=== PATIENT | female | born 1970 | race Caucasian/White ===

== ENCOUNTER 2025-07-22 14:10 | Emergency (ER) | payer OTHER, SELFPAY ==
[2025-07-22 14:16] VITALS: BP 129/94
--- NOTE | 2025-07-22 14:30 | ED.GENMED ---
Addendum entered and electronically signed by Min Wisdom DO 07/22/25 17:27:
Update patient seen by psychiatry cleared for discharge
Original Note:
History of Present Illness
General
Chief Complaint: Overdose Intentional
Source: patient
Exam Limitations: none
Time Seen by Provider: 07/22/25 14:15
Nursing documentation reviewed up to this point in time: agreed with
History of Present Illness
History of Present Illness:
55-year-old female via EMS friend called 9:30 AM patient took 5 Ativan 1 OxyContin and a few of her antidepressants is a suicide attempt, had a suicide attempt years ago, was hospitalized at [facility] denies any alcohol or drugs, she is cooperative.
States she did fall asleep was awoken by her son has been a little bit sleepy since this episode
Past History
Past History
ED Past Medical History: Psychiatric
Social History
Tobacco: Non-smoker
Alcohol: None
Drug: None
Personal:
Living: with family
Employment: Employed
Phy Exam
Physical Exam
Physical Exam:
Physical Exam
General: no apparent distress, not acutely ill
Neck: No jaundice pupils round reactive 4 mm OU
Heart: s1/s2 regular rate and rhythm, no murmur. equal radial pulses.
Lungs: no acute respiratory distress. clear bilaterally
Abdomen: Not tender
Neuro: alert and oriented. no focal neurological deficits
Skin: no rash
Psychiatric: Cooperative admits to depression not hallucinating
Extremities: no edema.
Course
Orders/Labs/Results
Orders:
Orders
07/22/25 14:25
1:1 Observation - Suicide/ Violent Behavior As Directed
Electrocardiogram (*1) Stat
Reason for Study: Other
Other Reason for Exam: overdose
EKG- Treatment ONCE
IV Insert/Care/Rem.- Treatment PRN
07/22/25 14:26
Crisis Consult Routine
Reason for Consult: OD
07/22/25 14:30
Acetaminophen Urgent
Alcohol Urgent
Complete Blood Count/With Diff Urgent
Comprehensive Metabolic Panel Urgent
Fentanyl, Urine Urgent
Salicylate Urgent
Urine Drug Abuse Screen Urgent
Date Specimen was Collected: 07/22/25
Time Specimen was Collected: 14:29
Abnormal Lab Results
07/22/25
14:30
WBC 11.5 H 10^3/uL
(4.8-10.8)
Abs Immat Gran (auto) 0.1 H 10^3/uL
(0-0.05)
Absolute Lymphs (auto) 4.0 H 10^3/uL
(1.2-3.4)
Sodium 134 L mmol/L
(135-145)
Salicylates < 1.0 L mg/dl
(2.0-20.0)
Ur Oxycodone Screen Positive H
(Negative)
Acetaminophen < 10 L ug/ml
(10-30)
U Benzodiazepines Scrn Positive H
(Negative)
U Marijuana (THC) Screen Positive H
(Negative)
07/22/25 14:30
07/22/25 14:30
Vital Signs
Initial and Last Documented VS:
Initial Vital Signs
Temp Pulse Resp BP Pulse Ox
98.3 F 80 16 129/94 95
07/22/25 14:16 07/22/25 14:16 07/22/25 14:16 07/22/25 14:16 07/22/25 14:16
Last Documented Vital Signs
Temp Pulse Resp BP Pulse Ox
98.3 F 83 21 109/78 98
07/22/25 14:16 07/22/25 15:15 07/22/25 15:15 07/22/25 15:00 07/22/25 15:00
MDM/Problems Addressed
Differential Diagnosis Includes:
Overdose sedative-hypnotic narcotic will check anion gap and acetaminophen
MDM/Problems Addressed:
Overdose
Chronic conditions affecting care: Psychiatric illness
Acute Exacerbation and/or Progression of Chronic Illness: Psychiatric illness
*Pulse Oximetry
SaO2: 99
Oxygen Mode of Delivery: Room air
Patient hypoxic: no
*EKG
Interpreted by ED Provider?: Yes
Interpretation: normal
Comparison EKG: no comparison EKG present
Heart Rate: 78
Rate: normal
Rhythm: sinus
Ischemia: no ischemia
*Orthodontist Small Business [employer] Interpretation
Rate: normal
Interpretation: normal
Heart Rate: 78
Rhythm: sinus
*Critical Care Note
Total Time (30-74mins, 75-104mins- exclusive of procedures): Not Applicable
Update Note
Update Note:
Update patient over 4 hours from an overdose of some Ativan narcotic SSRI, EKG noted patient maintaining her airway no acute distress, will check screening blood work including acetaminophen and salicylate anion gap, monitor for any sleepiness,
crisis has been notified
3:30 PM update now about 6 hours from her ingestion, she is in no acute distress cooperative, voluntary to psychiatric facility
ED Attending Note
-
Portions of this chart may have been created with voice recognition software.� Occasional wrong word or��sound alike� substitutions may have occurred due to the inherent limitations of voice recognition software.
Discharge Plan
Departure
Patient Disposition: Psych Facility
Date of Disposition: 07/22/25
Time of Disposition: 15:29
Patient Status:: 201
Patient with high blood pressure during this ER visit?: No
Condition: Good
Discharge Problem:
Overdose
Instructions: Suicide Prevention, Depression, Adult (DC)
Prescriptions:
No Action
Align
1 tab PO DAILY
metoprolol succinate [Toprol XL] 50 MG tablet extended release 24 hr
50 mg PO QPM
citalopram 20 MG tablet
20 mg PO DAILY
pantoprazole 40 MG tablet,delayed release (DR/EC)
40 mg PO BID
cyclobenzaprine 5 MG tablet
5 mg PO HS
Vitamin B Complex
1 tab PO DAILY
Vitamin D3
1 cap PO DAILY
Fish Oil
2 cap PO DAILY
polyethylene glycol 3350 17 GRAMS powder in packet
17 grams PO DAILYPRN PRN (Reason: constipation) Qty: 1 0RF
acetaminophen [Tylenol Extra Strength] 500 MG tablet
1,000 mg PO Q6HPRN PRN (Reason: mild pain) Qty: 1 0RF
ibuprofen 200 MG tablet
400 - 600 mg PO Q6HPRN PRN (Reason: moderate pain) Qty: 1 0RF
oxycodone 5 MG tablet
5 mg PO Q4HPRN PRN (Reason: breakthrough/severe pain) Qty: 14 0RF
Referrals:
UNKNOWN - PT NOT,INTERVIEWE [Family Provider]
Interventions
Interventions:
*Risk Screen - Suicide Last Done: 07/22/25 14:16
*General Assessment Last Done: 07/22/25 14:26
*Neglect/Abuse Screening Last Done: 07/22/25 14:16
*ED- Fall Risk Assessment Last Done: 07/22/25 14:26
*ED COVID-19 Vaccine History Last Done: 07/22/25 14:26
*ED Influenza Vaccine History Last Done: 07/22/25 14:26
ED- Cardiac Assessment Last Done: 07/22/25 14:26
ED- Neurological Assessment Last Done: 07/22/25 14:26
ED- Pulmonary Assessment Last Done: 07/22/25 14:26
Discharge Date and Time
Print Language: ESTONIAN
[2025-07-22 14:42] LABS: Hematocrit 43.0 % (37.0-47.0); Hemoglobin 15.0 g/dL (12.0-16.0); Mean Corp Hgb Conc. 34.9 g/dL (33.0-37.0); Mean Corpuscular Volume 84.0 fL (81.0-99.0); Nucleated Red Blood Cells % 0 %; Platelet Count 394 10^3/uL (130-400); Red Cell Dist. Width 12.8 % (11.5-14.5)
[2025-07-22 14:57] LABS: ALT (SGPT) 14 U/L (0-35); AST (SGOT) 18 U/L (14-36); Acetaminophen < 10 ug/ml (10-30); Albumin 4.7 g/dl (3.5-5.0); Alkaline Phosphatase 66 U/L (38-126); Blood Urea Nitrogen 12 mg/dl (7-17); Calcium 9.7 mg/dl (8.4-10.2); Carbon Dioxide 29 mmol/L (22-30); Chloride 100 mmol/L (98-107); Glucose 82 mg/dl (70-99); Potassium 3.7 mmol/L (3.5-5.1); Salicylate < 1.0 mg/dl (2.0-20.0); Sodium 134 mmol/L (135-145); Total Protein 8.2 g/dl (6.3-8.2); eGFR > 60.00
[2025-07-22 15:00] VITALS: BP 109/78
--- NOTE | 2025-07-22 16:56 | CS.PSYCHR ---
Consult Summary - Psychiatry
-
pt seen by me in consultation for assessment for higher level of care. had agreed to 201 now wants to leave, police had filed 'backup 302' due to overdose
55 yo woman brought to ED by EMS due to overdose. Pt reports she had not really wanted to , just wanted to sleep, but had taken too many and was distraught about loss of relationship. Pt has online partners via [employer], was involved with man
from [place] who now does not want to have anything to do with her.
Upset about this and other things. 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 Finanes are getting tight, despite and son both working.
Past psychiatric history of involuntary treatment at [facility] 15 years ago 'a horrible experience' followed by IOP at [place], then out patient in [facility]. Psychiatrist retired, med[facility] currently [facility]
Pt states marriage has issues, is 13 years older, more like pt's father (who is 80) whereas she is more like her mother was ( of lung Ca at 52, begins crying when talking about her; pt was 27, mother never met pt's son.)
No significant medical problems. Lives with . son has had his own mental health struggles but doing better now.
We spoke with by speaker, he is fine with her coming home 'if she's gonna be ok.' Pt promised him and me that she would be fine, just wants to go to sleep.
On exam pt initially upset, insulting staff saying 'all you people treat mentally ill patients like dogs, no wonder no one gets better' stating she wants to leave. Agreed to meet with me to discuss, and for me to be sure that outpatient care will be
adequate to maintain her safety. Pt downplayed seriousness of OD, says 'if I had wanted to I would have taken 90 citalopram'. Denies any interest in dying, wants to live for her family, regrets putting them through this. No signs of cognitve
impairment, no signs of psychosis. No psychomotor retardation, affect reactive through full range. Fair insight and judgment
Impression: Adjustment disorder with mixed features
Rec: Pt safe to discharge to [facility] level of care, agrees to return if condition worsens. Aware she needs to avoid any more citalopram today and tomorrow.
--- NOTE | 2025-07-22 17:24 | ED.GENMED ---
History of Present Illness
General
Chief Complaint: Overdose Intentional
Time Seen by Provider: 07/22/25 14:15
Past History
Past History
ED Past Medical History: Psychiatric
Social History
Tobacco: Non-smoker
Alcohol: None
Drug: None
Personal:
Living: with family
Employment: Employed
Course
Orders/Labs/Results
Orders:
Orders
07/22/25 14:25
1:1 Observation - Suicide/ Violent Behavior As Directed
Electrocardiogram (*1) Stat
Reason for Study: Other
Other Reason for Exam: overdose
EKG- Treatment ONCE
IV Insert/Care/Rem.- Treatment PRN
07/22/25 14:26
Crisis Consult Routine
Reason for Consult: OD
07/22/25 14:30
Acetaminophen Urgent
Alcohol Urgent
Complete Blood Count/With Diff Urgent
Comprehensive Metabolic Panel Urgent
Fentanyl, Urine Urgent
Salicylate Urgent
Urine Drug Abuse Screen Urgent
Date Specimen was Collected: 07/22/25
Time Specimen was Collected: 14:29
07/22/25 16:49
PSYCHIATRY CONSULT Urgent
Consulting Provider: John Patton
Was physician already notified: Yes
Abnormal Lab Results
07/22/25
14:30
WBC 11.5 H 10^3/uL
(4.8-10.8)
Abs Immat Gran (auto) 0.1 H 10^3/uL
(0-0.05)
Absolute Lymphs (auto) 4.0 H 10^3/uL
(1.2-3.4)
Sodium 134 L mmol/L
(135-145)
Salicylates < 1.0 L mg/dl
(2.0-20.0)
Ur Oxycodone Screen Positive H
(Negative)
Acetaminophen < 10 L ug/ml
(10-30)
U Benzodiazepines Scrn Positive H
(Negative)
U Marijuana (THC) Screen Positive H
(Negative)
07/22/25 14:30
07/22/25 14:30
Vital Signs
Initial and Last Documented VS:
Initial Vital Signs
Temp Pulse Resp BP Pulse Ox
98.3 F 80 16 129/94 95
07/22/25 14:16 07/22/25 14:16 07/22/25 14:16 07/22/25 14:16 07/22/25 14:16
Last Documented Vital Signs
Temp Pulse Resp BP Pulse Ox
98.3 F 83 21 109/78 98
07/22/25 14:16 07/22/25 15:15 07/22/25 15:15 07/22/25 15:00 07/22/25 15:00
*Pulse Oximetry
SaO2: 98
Oxygen Mode of Delivery: Room air
Update Note
Update Note:
Update patient seen by psychiatrist Dr. Patton cleared for discharge for IOP
ED Attending Note
-
Portions of this chart may have been created with voice recognition software.� Occasional wrong word or��sound alike� substitutions may have occurred due to the inherent limitations of voice recognition software.
Discharge Plan
Departure
Patient Disposition: Home (Routine Discharge)
Date of Disposition: 07/22/25
Time of Disposition: 15:29
Patient Status:: 201
Patient with high blood pressure during this ER visit?: No
Condition: Good
Discharge Problem:
Overdose
Instructions: Depression, Adult (DC), Suicide Prevention
Prescriptions:
No Action
Align
1 tab PO DAILY
metoprolol succinate [Toprol XL] 50 MG tablet extended release 24 hr
50 mg PO QPM
citalopram 20 MG tablet
20 mg PO DAILY
pantoprazole 40 MG tablet,delayed release (DR/EC)
40 mg PO BID
cyclobenzaprine 5 MG tablet
5 mg PO HS
Vitamin B Complex
1 tab PO DAILY
Vitamin D3
1 cap PO DAILY
Fish Oil
2 cap PO DAILY
polyethylene glycol 3350 17 GRAMS powder in packet
17 grams PO DAILYPRN PRN (Reason: constipation) Qty: 1 0RF
acetaminophen [Tylenol Extra Strength] 500 MG tablet
1,000 mg PO Q6HPRN PRN (Reason: mild pain) Qty: 1 0RF
ibuprofen 200 MG tablet
400 - 600 mg PO Q6HPRN PRN (Reason: moderate pain) Qty: 1 0RF
oxycodone 5 MG tablet
5 mg PO Q4HPRN PRN (Reason: breakthrough/severe pain) Qty: 14 0RF
Referrals:
UNKNOWN - PT NOT,INTERVIEWE [Family Provider]
Interventions
Interventions:
*Risk Screen - Suicide Last Done: 07/22/25 14:16
*General Assessment Last Done: 07/22/25 14:26
*Neglect/Abuse Screening Last Done: 07/22/25 14:16
*ED- Fall Risk Assessment Last Done: 07/22/25 14:26
*ED COVID-19 Vaccine History Last Done: 07/22/25 14:26
*ED Influenza Vaccine History Last Done: 07/22/25 14:26
ED- Cardiac Assessment Last Done: 07/22/25 14:26
ED- Neurological Assessment Last Done: 07/22/25 14:26
ED- Pulmonary Assessment Last Done: 07/22/25 14:26
Discharge Date and Time
Print Language: ITALIAN
== END 2025-07-22 17:43 | disposition home or self-care (01) ==
LOC: EMR 14:10
PROVIDERS: CONSULT PHYSICIAN Psychiatry & Neurology Psychiatry; EMERGENCY PHYSICIAN Emergency Medicine
DX: T43.222A Poisoning by selective serotonin reuptake inhibitors, intentional self-harm, initial encounter (principal); Y92.9 Unspecified place or not applicable; F19.10 Other psychoactive substance abuse, uncomplicated; F43.20 Adjustment disorder, unspecified; Z91.51 Personal history of suicidal behavior
CPT/HCPCS: 99283; 80053; 80143; 80179; 80306; 80307; 82077; 85025; 93005